=== PATIENT | female | born 1975 | race Caucasian/White ===

== ENCOUNTER 2016-11-01 09:39 | Emergency (ER) | payer MEDICAID ==
[~2016-11-01] VITALS: Ht 167.6 cm; Wt 123.2 kg
[2016-11-01 10:53] LABS: BLOOD UREA NITROGEN 13 mg/dL (7-18)
[2016-11-01] MEDS ORDERED: OMEP10CA4 PO (10:55)
[2016-11-01] MEDS ORDERED: ONDANSETRON ODT 4 MG PO ONE (11:30)
[2016-11-01] MEDS ORDERED: HYDROcodone/APAP 5/325 TABLET PO PRN (11:30)
[2016-11-01] MEDS ORDERED: ONDANSETRON ODT 4 MG ONE (11:48)
[2016-11-01] MEDS ORDERED: HYDROcodone/APAP 5/325 TABLET ONE (11:48)
[2016-11-01 13:02] LABS: HCG UR OBC PASS
[2016-11-01 13:33] VITALS: BP 135/81
== END 2016-11-01 14:22 | disposition home or self-care (01) ==
LOC: ED 10:45
DX: S39.012A Strain of muscle, fascia and tendon of lower back, initial encounter (principal); R10.30 Lower abdominal pain, unspecified; X58.XXXA Exposure to other specified factors, initial encounter; Y93.89 Activity, other specified; Y92.89 Other specified places as the place of occurrence of the external cause; Y99.8 Other external cause status
CPT/HCPCS: 36415; 72110; 80048; 81003; 81025; 82040; 85025; 99285; Q0162

== ENCOUNTER 2019-05-10 09:50 | Emergency (ER) | payer BC ==
[~2019-05-10] VITALS: Ht 162.6 cm; Wt 136.9 kg
[~2019-05-10 09:50] MED LIST: OMEP10CA5 PO
[2019-05-10 09:53] VITALS: BP 143/95
[2019-05-10] MEDS ORDERED: METHOCARBAMOL 750 MG TABLET ONE (10:23)
[2019-05-10] MEDS ORDERED: KETOROLAC 30 MG/1 ML ONE (10:23)
[2019-05-10] MEDS ORDERED: METHOCARBAMOL 750 MG TABLET PO ONE (10:30)
[2019-05-10] MEDS ORDERED: KETOROLAC 30 MG/1 ML IM ONE (10:30)
== END 2019-05-10 11:30 | disposition home or self-care (01) ==
LOC: ED 11:24
DX: S39.012A Strain of muscle, fascia and tendon of lower back, initial encounter (principal); X58.XXXA Exposure to other specified factors, initial encounter; Y93.89 Activity, other specified; Y92.89 Other specified places as the place of occurrence of the external cause; Y99.8 Other external cause status
CPT/HCPCS: 72110; 96372; 99283; J1885

== ENCOUNTER 2019-07-05 09:55 | Emergency (ER) | payer BC ==
[~2019-07-05] VITALS: Ht 162.6 cm; Wt 135.6 kg
[2019-07-05 10:20] VITALS: BP 137/96
[2019-07-05] MEDS ORDERED: MORPHINE SULFATE 4 MG/ML, 1ML ONE (10:51)
[2019-07-05] MEDS ORDERED: ONDANSETRON 2MG/ML, 2ML ONE (10:51)
[2019-07-05] MEDS ORDERED: ONDANSETRON 2MG/ML, 2ML IVPush ONE (11:00)
[2019-07-05] MEDS ORDERED: SODIUM CHLORIDE FLUSH 10ML SYR IVF ONE (11:00)
[2019-07-05] MEDS ORDERED: MORPHINE SULFATE 4 MG/ML, 1ML IVPush PRN (11:00)
--- NOTE | 2019-07-05 11:22 | NUR ---
ua sent/labs/piv est/meds per jul. pt to xr. as
[2019-07-05 11:25] LABS: BASOPHILS # (AUTO) 0.03 x10^3/uL (0-0.1); BASOPHILS % (AUTO) 0 % (0-1); EOSINOPHILS # (AUTO) 0.35 x10^3/uL (0-0.4); EOSINOPHILS % (AUTO) 4 % (1-7); LYMPHOCYTES # (AUTO) 1.92 x10^3/uL (1-3.4); LYMPHOCYTES % (AUTO) 24 % (22-44); MD NO; MEAN CORPUSCULAR HEMOGLOBIN 28.7 pg (27.0-34.8); MEAN CORPUSCULAR HGB CONC 33.4 g/dL (32.4-35.8); MEAN CORPUSCULAR VOLUME 86.1 fL (80-100); MEAN PLATELET VOLUME 10.1 fL (7.4-10.4); MONOCYTES % (AUTO) 9 % (2-9); NEUTROPHILS # (AUTO) 5.17 x10^3/uL (1.8-6.8); NEUTROPHILS % (AUTO) 63 % (42-75); PLATELET COUNT 227 x10^3/uL (130-400); RED BLOOD COUNT 5.09 x10^6/uL (3.82-5.3); RED CELL DISTRIBUTION WIDTH 16.1 % (9.6-15.2)
[2019-07-05 11:29] LABS: ALBUMIN 3.7 g/dL (3.4-5.0); ANION GAP 5 mmol/L (5-15); CALCIUM 8.7 mg/dL (8.5-10.1); CHLORIDE 107 mmol/L (98-107); CREATININE 0.81 mg/dL (0.55-1.02)
[2019-07-05 11:30] LABS: CULTURE INDICATED? YES; MICROSCOPIC INDICATED
== END 2019-07-05 12:33 | disposition home or self-care (01) ==
LOC: ED 12:08
DX: N30.00 Acute cystitis without hematuria (principal); M51.36 Other intervertebral disc degeneration, lumbar region; Z87.891 Personal history of nicotine dependence
CPT/HCPCS: 36415; 72110; 80048; 81001; 82040; 84703; 85025; 87086; 96374; 96375; 99284; J2270; J2405

== ENCOUNTER 2019-07-19 04:13 | Emergency (ER) | payer BC ==
[~2019-07-19] VITALS: Ht 162.6 cm; Wt 135.4 kg
[2019-07-19 04:15] VITALS: BP 135/93
[2019-07-19] MEDS ORDERED: ESOM20CA PO (04:21)
[2019-07-19] MEDS ORDERED: THYR120T PO (04:21)
[2019-07-19] MEDS ORDERED: KETOROLAC 60 MG/2 ML ONE (04:54)
[2019-07-19] MEDS ORDERED: KETOROLAC 30 MG/1 ML IM ONE (05:00)
[2019-07-19] MEDS ORDERED: OXYcodone/APAP 5/325MG TABLET ONE (05:24)
--- NOTE | 2019-07-19 05:27 | NUR ---
PT MEDICATED PER MAR
[2019-07-19] MEDS ORDERED: OXYcodone/APAP 5/325MG TABLET PO ONE (05:30)
--- NOTE | 2019-07-19 06:16 | NUR ---
pt d/c with d/c summary and scripts. all questions answered. pt ambulates to registration desk with steady gait and denies any other needs pertaining to this visit. pt friend with pt to drive pt to her home.
== END 2019-07-19 06:31 | disposition home or self-care (01) ==
LOC: ED 05:09
DX: M47.816 Spondylosis without myelopathy or radiculopathy, lumbar region (principal)
CPT/HCPCS: 96372; 99283; J1885